=== PATIENT | female | born 1935 | race Asian ===

== ENCOUNTER 2017-10-04 09:50 | Emergency (ER) | payer MEDICARE, OTHER ==
[2017-10-04] MEDS: morphine 2 MG INJ IV (11:46)
[2017-10-04] MEDS: ONDANSETRON 4 MG INJ IV ×2 (11:47→13:22)
[2017-10-04 11:52] LABS: ADD MAN DIFF? NO
[2017-10-04 11:54] LABS: BASOPHIL # 0.1 10^3/ul (0.0-0.1); EOSINOPHILS # 0.2 10^3/ul (0.0-0.5); IMMATURE GRANS #M 0.01 10^3/ul; IMMATURE GRANS % (M) 0.2 %; MONOCYTE # 0.3 10^3/ul (0.3-0.9)
[2017-10-04 12:17] LABS: ALANINE AMINOTRANSFERASE 22 IU/L (13-69); ALBUMIN 3.9 g/dl (3.3-4.9); ALBUMIN/GLOBULIN RATIO 1.25; ALKALINE PHOSPHATASE 58 IU/L (42-121); ANION GAP 13 (8-16); ASPARTATE AMINO TRANSFERASE 31 IU/L (15-46); BILIRUBIN,INDIRECT 0.7 mg/dl (0-1.1); BILIRUBIN,TOTAL 0.7 mg/dl (0.2-1.3); BLOOD UREA NITROGEN 19 mg/dl (7-20); CALCIUM 9.2 mg/dl (8.4-10.2); CARBON DIOXIDE 28 mmol/L (21-31); CHLORIDE 109 mmol/L (97-110); CREATINE KINASE 60 IU/L (23-200); CREATININE 0.88 mg/dl (0.44-1.00); GLUCOSE 93 mg/dl (70-220); POTASSIUM 3.9 mmol/L (3.5-5.1); SODIUM 146 mmol/L (135-144)
[2017-10-04 12:29] LABS: CK INDEX 0.7; CK-MB 0.41 ng/ml (0.0-2.4); TROPONIN-I < 0.010 ng/ml (0.000-0.120)
[2017-10-04 12:37] LABS: INR 0.94; PROTIME 12.7 Sec (11.9-14.9)
[2017-10-04 12:38] LABS: PARTIAL THROMBOPLASTIN TIME 29.9 Sec (25.0-35.0)
[2017-10-04] MEDS: HYDROmorphONE 0.5 MG/0.5 ML SYG IV (13:27)
[2017-10-04 13:42] LABS: WHITE BLOOD COUNT 4.7 10^3/ul (4.8-10.8)
[2017-10-04 13:42] LABS: HEMATOCRIT 40.1 % (37.0-47.0); HEMOGLOBIN 13.4 g/dl (12.0-16.0); MEAN CORPUSCULAR HEMOGLOBIN 32.4 pg (29.0-33.0); MEAN CORPUSCULAR VOLUME 96.9 fl (82.0-101.0); RED BLOOD COUNT 4.14 10^6/ul (4.20-5.40)
[2017-10-04 13:43] LABS: MEAN CORPUSCULAR HGB CONC 33.4 g/dl (32.0-37.0); PLATELET COUNT 147 10^3/UL (140-415); RED CELL DISTRIBUTION WIDTH 13.9 % (11.5-14.5)
[2017-10-04 13:45] LABS: EOSINOPHILS % 3.4 % (0.0-7.0); LYMPHOCYTES % 38.6 % (15.0-51.0); MONOCYTES % 5.3 % (0.0-11.0); NEUTROPHILS % 50.8 % (39.0-77.0)
[2017-10-04 13:46] LABS: BASOPHILS % 1.7 % (0.0-2.0); LYMPHOCYTES # 1.8 10^3/ul (0.8-2.9); NEUTROPHIL # 2.4 10^3/ul (1.6-7.5)
== END 2017-10-04 13:44 | disposition home or self-care (01) ==
LOC: E/R 09:50
DX: S20.212A Contusion of left front wall of thorax, initial encounter (principal); W01.0XXA Fall on same level from slipping, tripping and stumbling without subsequent striking against object, initial encounter; Y92.9 Unspecified place or not applicable; Z79.82 Long term (current) use of aspirin
CPT/HCPCS: 71250; 80053; 82550; 82553; 84484; 85025; 85610; 85730; 93005; 96374; 96375; 96376; 99285-25